=== PATIENT | female | born 1950 | race Caucasian/White ===

== ENCOUNTER → 2023-10-28 08:41 | Outpatient (CLI) | payer MEDICARE, SELFPAY ==
[2023-10-28 09:35] LABS: Add Manual Diff / Slide Review NO; Basophils Absolute Auto 0 /uL (0-100); Basophils Percent Auto 0.6 % (0-2); Eosinophils Absolute Auto 500 /uL (0-450); Eosinophils Percent Auto 7.3 % (2-4); Hematocrit 41.7 % (36-46); Lymphocytes Absolute Auto 3100 /uL (1100-4500); Lymphocytes Percent Auto 44.1 % (25-40); Mean Corpuscular HGB Conc 33.6 % (30-36); Mean Corpuscular Hemoglobin 30.5 PG (26-34); Mean Corpuscular Volume 90.7 fL (80-100); Monocytes Absolute Auto 600 /uL (0-900); Monocytes Percent Auto 8.9 % (3-14); Neutrophils Absolute Auto 2700 /uL (1500-7000); Neutrophils Percent Auto 39.1 % (50-75); Platelet Count 351 X10^3/uL (150-400); Red Blood Cell Count 4.59 X10^6/uL (4.0-5.2); Red Cell Distribution Width 12.4 % (11.6-14.8)
[2023-10-28 09:53] LABS: Alanine Aminotransferase 21 IU/L (<35); Albumin 4.5 g/dL (3.5-5.0); Albumin Globulin Ratio 1.3 (1.0-2.8); Alkaline Phosphatase 100 U/L (38-126); Aspartate Aminotransferase 27 IU/L (14-36); Bilirubin Total 0.8 mg/dL (0.2-1.3); Blood Urea Nitrogen 13 mg/dL (7-17); Carbon Dioxide 27 mmol/L (22-32); Chloride 101 mmol/L (98-107); Cholesterol 208 mg/dL (140-199); Estimated Glomerular Filt Rate > 60 mL/min (>60); Globulin 3.6 g/dL (1.7-4.1); Glucose 92 mg/dL (80-110); HDL Cholesterol 74 mg/dL (40-60); HEMOLYSIS < 15 (0-50); LDL Cholesterol Calculated 106 mg/dL (<100); Potassium 4.2 mmol/L (3.4-5.1); Sodium 138 mmol/L (137-145); Total Protein 8.1 g/dL (6.3-8.2); Triglycerides 138 mg/dL (35-150)
[2023-10-28 11:01] LABS: TSH w/ Reflex to FT4 1.74 uIU/mL (0.47-4.68)
== END ==
LOC: LAB 08:43
PROVIDERS: PCP Family Medicine; Referring Provider Family Medicine; Visit Provider Family Medicine
DX: I10 Essential (primary) hypertension (principal); D64.9 Anemia, unspecified; E78.00 Pure hypercholesterolemia, unspecified
CPT/HCPCS: 36415; 80053; 80061; 84443; 85025

== ENCOUNTER → 2024-08-08 08:54 | Outpatient (CLI) | payer MEDICARE, SELFPAY ==
[2024-08-08 10:30] LABS: Alanine Aminotransferase 18 IU/L (<35); Albumin 4.7 g/dL (3.5-5.0); Albumin Globulin Ratio 1.6 (1.0-2.8); Alkaline Phosphatase 90 U/L (38-126); Aspartate Aminotransferase 25 IU/L (14-36); BUN Creatinine Ratio 12.3 (6-22); Bilirubin Total 0.7 mg/dL (0.2-1.3); Blood Urea Nitrogen 9 mg/dL (7-17); Carbon Dioxide 27 mmol/L (22-32); Chloride 103 mmol/L (98-107); Cholesterol 218 mg/dL (140-199); Estimated Glomerular Filt Rate > 60 mL/min (>60); Glucose 92 mg/dL (80-110); HDL Cholesterol 100 mg/dL (40-60); HEMOLYSIS < 15 (0-50); LDL Cholesterol Calculated 96 mg/dL (<100); Potassium 4.3 mmol/L (3.4-5.1); Sodium 139 mmol/L (137-145); Total Protein 7.7 g/dL (6.3-8.2); Triglycerides 112 mg/dL (35-150)
== END ==
PROVIDERS: PCP Family Medicine; Referring Provider Family Medicine; Visit Provider Family Medicine
DX: Z00.00 Encounter for general adult medical examination without abnormal findings (principal); E78.00 Pure hypercholesterolemia, unspecified; I10 Essential (primary) hypertension; H35.30 Unspecified macular degeneration; T78.40XD Allergy, unspecified, subsequent encounter
CPT/HCPCS: 36415; 80053; 80061

== ENCOUNTER → 2024-10-11 08:15 | Outpatient (CLI) | payer MEDICARE, SELFPAY ==
--- NOTE | 2024-10-11 08:17 | DI.MG.S_ITS ---
BILATERAL DIGITAL SCREENING MAMMOGRAM 3D/2D WITH CAD: 10/11/2024 CLINICAL: Baseline exam. Routine screening. No prior exams were available for comparison. There are scattered areas of fibroglandular density (category b / 25%-50% glandular tissue). Current study was also evaluated with a Computer Aided Detection (CAD) system. No significant masses, calcifications, or other findings are seen in either breast. IMPRESSION: NEGATIVE There is no mammographic evidence of malignancy. A 1 year screening mammogram is recommended. Based on the Tyrer Cuzick model (a risk assessment model) the patient's lifetime risk is 3.0% and her 10 year risk is 2.7%. According to the ACR, ACS, and NCCN guidelines, an annual breast MRI exam along with mammogram is recommended if the patient's lifetime risk is 20% or greater. This exam was interpreted at Station ID: [id number]. NOTE: For mammograms, a report in lay terms will be sent to the patient. Approximately 15% of breast malignancies will not be visualized mammographically. In the management of a palpable breast mass, a negative mammogram must not discourage biopsy of a clinically suspicious lesion. Electronically Signed By: Sourav brandon/francisca:10/11/2024 15:15:12 letter sent: Normal Exam ACR BI-RADS Category 1: Negative
== END ==
PROVIDERS: PCP Family Medicine; Referring Provider Family Medicine; Visit Provider Family Medicine
DX: Z12.31 Encounter for screening mammogram for malignant neoplasm of breast (principal)
CPT/HCPCS: 77063; 77067

== ENCOUNTER → 2025-02-06 09:03 | Outpatient (CLI) | payer MEDICARE, SELFPAY ==
[2025-02-06 10:12] LABS: Alanine Aminotransferase 23 IU/L (<35); Albumin 4.6 g/dL (3.5-5.0); Albumin Globulin Ratio 1.8 (1.0-2.8); Alkaline Phosphatase 90 U/L (38-126); Aspartate Aminotransferase 28 IU/L (14-36); BUN Creatinine Ratio 16.2 (6-22); Bilirubin Total 0.6 mg/dL (0.2-1.3); Blood Urea Nitrogen 11 mg/dL (7-17); Calcium 9.9 mg/dL (8.4-10.2); Carbon Dioxide 28 mmol/L (22-32); Chloride 104 mmol/L (98-107); Estimated Glomerular Filt Rate > 60 mL/min (>60); Globulin 2.6 g/dL (1.7-4.1); Glucose 89 mg/dL (70-99); HEMOLYSIS < 15 (0-50); Potassium 4.2 mmol/L (3.4-5.1); Sodium 140 mmol/L (137-145); Total Protein 7.2 g/dL (6.3-8.2)
== END ==
PROVIDERS: PCP Family Medicine; Referring Provider Family Medicine; Visit Provider Family Medicine
DX: E78.5 Hyperlipidemia, unspecified (principal); I10 Essential (primary) hypertension
CPT/HCPCS: 36415; 80053

== ENCOUNTER 2025-04-24 15:50 | Emergency (ER) | payer MEDICARE, SELFPAY ==
[2025-04-24 15:53] VITALS: BP 150/67; PULSE 76; RESP 18; TEMP 36.6; O2SAT 96; BMI 24.5
--- NOTE | 2025-04-24 16:29 | DI.CT.S_ITS ---
PROCEDURE: CT HEAD/BRAIN WO CON INDICATIONS: fall and headstrike against concrete step. TECHNIQUE: Noncontrast 4.5 mm thick angled axial sections acquired from the foramen magnum to the vertex, with coronal and sagittal reformats. For radiation dose reduction, the following was used: automated exposure control, adjustment of mA and/or kV according to patient size. COMPARISON: None. FINDINGS: Image quality: Diagnostic. Some images are limited by beam hardening artifacts most notably at the base of the skull. Mild left anterior frontal soft tissue scalp swelling/hematoma measures up to 4 mm depth. Ventricles and cortical sulci are moderately dilated commonly represents a pattern of atrophy. Mild areas of low-attenuation in the periventricular and deep white matter, commonly related to chronic small vessel ischemic changes. Vascular calcifications bilateral cavernous, supraclinoid carotids. The orbits, scalp, calvarium, paranasal sinuses, mastoid air cells, middle ear cavities normal. No CT evidence of intracranial hemorrhage, mass lesion, mass effect, acute or subacute infarct. IMPRESSION: Atrophy and chronic white matter small vessel ischemic changes. Left frontal scalp swelling/hematoma. No CT evidence of intracranial hemorrhage. If symptoms persist or worsen, or there is high clinical suspicion of intracranial abnormality, MRI could be performed. Dictated by: Sy Mcdowell M.D. on 04/24/2025 at 17:11 Approved by: Sy Mcdowell M.D. on 04/24/2025 at 17:14
--- NOTE | 2025-04-24 16:31 | DI.CT.S_ITS ---
PROCEDURE: CT CERVICAL SPINE WO CON INDICATIONS: head injury TECHNIQUE: Noncontrast 3 mm thick sections acquired from the skull base to the T4 level. Sagittal and coronal reformats were then constructed. For radiation dose reduction, the following was used: automated exposure control, adjustment of mA and/or kV according to patient size. COMPARISON: None. FINDINGS: Image quality: Diagnostic. Some images are limited by beam hardening artifacts, and other artifacts. Mild levoscoliosis upper cervical spine with straightening of the normal cervical lordosis some of which may be artifact from positioning or related to muscle spasm or degenerative changes. Multilevel degenerative changes throughout the cervical spine with disc space narrowing, disc-osteophyte complexes, uncovertebral and facet hypertrophic changes most notably at C4-5, C5-6, with [id number] bilateral neural foraminal narrowing. No CT evidence of central stenosis. Incidental note is made of heterogeneous low-attenuation right thyroid lobe measuring up to 1.6 cm may represent thyroid nodule. Follow-up thyroid ultrasound may be useful for further evaluation. Mild bilateral apical pleural thickening/scarring in the lungs. No CT evidence of fracture, subluxation or abnormal prevertebral soft tissue edema. IMPRESSION: Multilevel degenerative changes most notably at C4-5, C5-6. Low-attenuation right thyroid lobe ultrasound may be useful for further evaluation. If symptoms persist or worsen, or there is high clinical suspicion of cervical abnormality, MRI could be performed. Dictated by: Sy Mcdowell M.D. on 04/24/2025 at 17:14 Approved by: Sy Mcdowell M.D. on 04/24/2025 at 17:19
[2025-04-24] MEDS: ACETAMINOPHEN 325 MG TABLET 975 MG PO (16:48)
[2025-04-24 17:34] VITALS: BP 147/66; PULSE 65; RESP 16; O2SAT 97
--- NOTE | 2025-04-25 15:32 | ED.HEATRA ---
HPI - Head Injury General Chief complaint: Head Injury Stated complaint: fell, hit head on concrete steps Time Seen by Provider: 04/24/25 16:23 Source: patient Mode of arrival: Ambulatory History of Present Illness HPI Narrative: 74-year-old female presents to the ED status post a head injury sustained from a mechanical fall just prior to arrival. Patient fell forward and hit her head on some stone steps when gardening. No LOC. No blood thinners. Bleeding is controlled with pressure. There is a small abrasion to the top of the head but no laceration. Patient complains of a mild headache. No neck pain. No other symptoms. Related Data Home Medications ?Medication ?Instructions ?Recorded ?Confirmed aspirin 81 mg chewable tablet 81 mg PO DAILY 10/22/23 08/09/24 multivitamin [Daily Multi-Vitamin] 1 tab PO .QD 02/07/25 02/07/25 Previous Rx's ?Medication ?Instructions ?Recorded fexofenadine 180 mg tablet 180 mg PO DAILY #30 tabs 08/09/24 ([facility]) lisinopril 10 mg tablet 10 mg PO DAILY #90 tabs 08/09/24 lovastatin 20 mg tablet 20 mg PO DAILY #90 tabs 08/09/24 Allergies Allergy/AdvReac Type Severity Reaction Status Date / Time Penicillins Allergy Mild Verified 04/24/25 15:53 Review of Systems Constitutional Constitutional: Denies chills, Denies fatigue, Denies fever(s), Denies frequent falls, Denies lethargy and Denies weakness Eyes Eyes: Denies change in vision, Denies eye discharge, Denies irritation and Denies loss of vision ENT Ears, Nose, Mouth, and Throat: Denies change in voice, Denies dizziness, Denies neck pain, Denies sore throat and Denies throat swelling Cardiovascular Cardiovascular: Denies chest pain, Denies irregular heart rhythm, Denies lightheadedness, Denies palpitations, Denies dyspnea, Denies dyspnea on exertion and Denies orthopnea Respiratory Respiratory: Denies cough, Denies dyspnea, Denies dyspnea on exertion and Denies wheezing Gastrointestinal Gastrointestinal: Denies abdominal pain, Denies change in bowel habits, Denies diarrhea, Denies nausea and Denies vomiting Musculoskeletal Musculoskeletal: Denies neck pain and Denies numbness Integumentary/Breasts Skin/Breast: Denies pruritus, Denies erythema, Denies rash and Reports wounds Comments: scalp wound Neurologic Neurologic: Denies behavioral changes, Denies confusion, Denies dizziness, Denies frequent falls, Denies loss of vision, Denies numbness and Denies weakness Psychiatric Psychiatric: Denies anxiety, Denies behavioral changes, Denies confusion, Denies depression, Denies homicidal ideation and Denies suicidal ideation Endocrine Endocrine: Denies fatigue, Denies flushing and Denies palpitations Hematologic/Lymphatic Hematologic/Lymphatic: Denies easy bruising Allergic/Immunologic Allergic/Immunologic: Denies urticaria, Denies throat swelling and Denies wheezing Patient History Medical History Allergies Fractures Mumps Measles Preventative health care History of anemia Macular degeneration (~2020) Hyperlipidemia Hypertension Surgical History Anesthesia Fibroids (~1994) Basal cell carcinoma (~2021) Family History Father History of heart disease Mother History of heart disease Grandfather History of heart disease Grandmother History of heart disease Grandfather History of heart disease Grandmother History of heart disease Social History Smoking Status: Never smoker Smoking Status: Never smoker Exam Narrative Exam Narrative: Const General:?cooperative, healthy appearing and comfortable [facility] Head:? Shallow abrasion to the top of the head. Not actively bleeding. Small hematoma. Ears:?hearing grossly normal bilaterally Nose:?external nose normal Face and sinus:?normal facial exam and sinuses nontender Mouth:?oral mucosae normal Throat:?posterior oropharynx normal Eyes General:?appearance normal, both eyes and all related structures Neck Neck:?normal visual inspection and no lymphadenopathy noted Resp Effort & Inspection:?normal respiratory effort Auscultation:?clear to auscultation bilaterally Cardio Rate:?regular rate Rhythm:?regular rhythm Neuro General:?patient alert, patient awake and patient oriented x3; PERRLA; gait normal; CN 2-12 intact bilaterally Initial Vital Signs Initial Vital Signs: Vital Signs Temperature 97.8 F 04/24/25 15:53 Pulse Rate 76 04/24/25 15:53 Respiratory Rate 18 04/24/25 15:53 Blood Pressure 150/67 H 04/24/25 15:53 Pulse Oximetry 96 04/24/25 15:53 Oxygen Delivery Method Room Air 04/24/25 15:53 Course Orders Ordered: Discontinued Medications Acetaminophen (Acetaminophen 325 Mg Tablet) 975 mg PO NOW ONE Stop: 04/24/25 16:34 Last Admin: 04/24/25 16:48 Dose: 975 mg Documented By: NIURKA MDM - Head Injury MDM Narrative Medical decision making narrative: 74-year-old female presents to the ED status post a head injury sustained from a mechanical fall just prior to arrival. CT head and CT C-spine obtained. CT head shows left frontal scalp swelling/hematoma. No CT evidence of intracranial hemorrhage. Atrophy and chronic white matter small-vessel ischemic changes. CT C-spine shows multilevel degenerative changes most notably at C4-5, C5-6. Incidental note is made of a thyroid nodule. No CT evidence of fracture, subluxation or abnormal prevertebral soft tissue edema. The wound was cleaned well, which was reassuring for only a shallow abrasion with no active bleeding. No laceration that requires sutures. ED return precautions discussed with patient. Patient verbalized understanding. Medical records reviewed: Yes Discharge Plan Departure Patient Disposition: Home Clinical Impression: Head injury Qualifiers: Encounter type: initial encounter Qualified Code(s): S09.90XA - Unspecified injury of head, initial encounter Instructions: DI for Closed Head Injury Activity Restrictions/Additional Instructions: You were evaluated in the emergency department today for a head injury from a fall. The CT scan of your head and neck were normal. It appears that you have an abrasion to the top of your head which will heal over the next few days. You may continue to take Tylenol. Please watch for signs of infection including worsening redness, pain, swelling, warmth, discharge. Return to the ED if you note any signs of infection. Please also return to the ED if you have any other worsening symptoms. Prescriptions: No Action aspirin 81 mg tablet,chewable 81 mg PO DAILY multivitamin [Daily Multi-Vitamin] 1 tab PO .QD lisinopril 10 mg tablet 10 mg PO DAILY Qty: 90 3RF lovastatin 20 mg tablet 20 mg PO DAILY Qty: 90 3RF fexofenadine [[facility]] 180 mg tablet 180 mg PO DAILY Qty: 30 2RF Referrals: Simon Edwards, [Primary Care Provider, [facility]] Stand Alone Forms: Patient Portal/API
== END 2025-04-24 17:35 | disposition home or self-care (01) ==
PROVIDERS: Emergency Provider Student in an Organized Health Care Education/Training Program; PCP Family Medicine
DX: S09.90XA Unspecified injury of head, initial encounter (principal); W18.09XA Striking against other object with subsequent fall, initial encounter
CPT/HCPCS: 70450; 72125; 99283; 99284

== ENCOUNTER → 2025-08-21 10:19 | Outpatient (CLI) | payer MEDICARE, SELFPAY ==
[2025-08-21 12:26] LABS: Alanine Aminotransferase 17 IU/L (<35); Albumin 4.6 g/dL (3.5-5.0); Albumin Globulin Ratio 1.6 (1.0-2.8); Alkaline Phosphatase 96 U/L (38-126); Blood Urea Nitrogen 13 mg/dL (7-17); Calcium 9.7 mg/dL (8.4-10.2); Carbon Dioxide 25 mmol/L (22-32); Chloride 105 mmol/L (98-107); Estimated Glomerular Filt Rate > 60 mL/min (>60); Globulin 2.9 g/dL (1.7-4.1); Glucose 82 mg/dL (70-99); HEMOLYSIS < 15 (0-50); Potassium 4.0 mmol/L (3.4-5.1); Sodium 141 mmol/L (137-145); Total Protein 7.5 g/dL (6.3-8.2); Uric Acid 4.7 mg/dL (2.5-6.2)
[2025-08-21 16:13] LABS: TSH w/ Reflex to FT4 1.54 uIU/mL (0.47-4.68)
== END ==
PROVIDERS: PCP Family Medicine; Referring Provider Family Medicine; Visit Provider Family Medicine
DX: Z00.00 Encounter for general adult medical examination without abnormal findings (principal); I10 Essential (primary) hypertension; E87.5 Hyperkalemia
CPT/HCPCS: 36415; 80053; 84443; 84550